=== PATIENT | female | born 1995 | race African-American/Black ===

== ENCOUNTER 2020-10-16 17:46 | Emergency (ER) | payer OTHER ==
[2020-10-16 18:16] VITALS: BP 103/56; PULSE 90; TEMP 98.4; BMI 31.1
[2020-10-16] MEDS ORDERED: MECLIZINE HCL 25 MG TABLET (FP) PO ONE (19:03)
[2020-10-16] MEDS ORDERED: MECLIZINE HCL 25 MG TABLET (FP) ONE (19:05)
[2020-10-16 19:32] LABS: PH,URINE >= 9.0 (5.0-8.0); URINE APPEARANCE CLEAR; URINE BILIRUBIN NEGATIVE (NEGATIVE); URINE COLOR YELLOW; URINE GLUCOSE (UA) NEGATIVE (NEGATIVE); URINE KETONE NEGATIVE (NEGATIVE); URINE LEUK ESTERASE NEGATIVE (NEGATIVE); URINE NITRITE NEGATIVE (NEGATIVE); URINE PROTEIN NEGATIVE (NEGATIVE); URINE UROBILINOGEN 0.2 mg/dL (0.2-1.0)
[2020-10-16 19:58] LABS: HCG,QUALITATIVE URINE Negative
== END 2020-10-16 19:30 | disposition home or self-care (01) ==
LOC: JER 17:46
DX: R42 Dizziness and giddiness (principal)
CPT/HCPCS: 81003; 84703; 93005; 93010; 99284-25